=== PATIENT | female | born 1985 | race Two or more races ===

== ENCOUNTER 2020-08-02 20:20 | Emergency (ER) | payer SELFPAY ==
[~2020-08-02] VITALS: Ht 165.1 cm; Wt 72.7 kg
[2020-08-02 21:00] VITALS: BP 115/60
[2020-08-02] MEDS ORDERED: IBUP-1007 PO (21:14)
[2020-08-02] MEDS ORDERED: AMOX500C PO (21:14)
--- NOTE | 2020-08-02 21:14 | PHYS DOC ---
General Adult EDM: Chief Complaint: EARACHE/EAR PAIN HPI: HPI: Patient is a 34 year old female who presents with 2 days of intermittent diarrhea, right ear pain with muffled hearing, body aches, chills. Patient states she feels off balance. She states she is not been taking any medication for her symptoms. She has not gotten any Covid shots. Patient rates her pain at 8 out of 10. Denies any past medical history or surgeries. She denies chest pain, cough, shortness of breath, syncope, headache, abdominal pain, nausea, vomiting. Review of Systems: Review of Systems: Constitutional: + fever or chills. [] Eyes: Denies change in visual acuity. [] HENT: Denies nasal congestion or sore throat. + Right ear pain [] Respiratory: Denies cough or shortness of breath. [] Cardiovascular: Denies chest pain or edema. [] GI: Denies abdominal pain, nausea, vomiting, bloody stools or +diarrhea. [] : Denies dysuria. [] Musculoskeletal: Denies back pain or joint pain. [] Integument: Denies rash. [] Neurologic: Denies headache, focal weakness or sensory changes. + Dizziness [] Endocrine: Denies polyuria or polydipsia. [] Lymphatic: Denies swollen glands. [] Psychiatric: Denies depression or anxiety. [] Heart Score: C/O Chest Pain: No Risk Factors: Risk Factors: DM, Current or recent (<one month) smoker, HTN, HLP, family history of CAD, obesity. Risk Scores: Score 0 - 3: 2.5% MACE over next 6 weeks - Discharge Home Score 4 - 6: 20.3% MACE over next 6 weeks - Admit for Clinical Observation Score 7 - 10: 72.7% MACE over next 6 weeks - Early Invasive Strategies Physical Exam: PE: Constitutional: Well developed, well nourished, no acute distress, non-toxic appearance. [] HENT: Normocephalic, atraumatic, bilateral external ears normal, oropharynx moist, no oral exudates, nose normal. Right ear canal swollen with tympanic not intact. There are some discharge in the ear canal. [] Eyes: PERRLA, EOMI, conjunctiva normal, no discharge. [] Neck: Normal range of motion, no tenderness, supple, no stridor. [] Cardiovascular:Heart rate regular rhythm, no murmur [] Lungs & Thorax: Bilateral breath sounds clear to auscultation [] Abdomen: Bowel sounds normal, soft, no tenderness, no masses, no pulsatile masses. [] Skin: Warm, dry, no erythema, no rash. [] Back: No tenderness, no CVA tenderness. [] Extremities: No tenderness, no cyanosis, no clubbing, ROM intact, no edema. [] Neurologic: Alert and oriented X 3, normal motor function, normal sensory function, no focal deficits noted. [] Psychologic: Affect normal, judgement normal, mood normal. [] Current Patient Data: Vital Signs: Vital Signs Date Time Temp Pulse Resp B/P (MAP) Pulse Ox O2 Delivery O2 Flow Rate FiO2 08/02/20 20:23 98.4 69 20 115/60 (78) 98 Room Air 98.4 EKG: EKG: [] Radiology/Procedures: Radiology/Procedures: [] Course & Med Decision Making: Course & Med Decision Making Pertinent Labs and Imaging studies reviewed. (See chart for details) COVID-19 CRITERIA: The patient was evaluated during the global COVID-19 pandemic, and that diagnosis was suspected/considered upon their initial presentation. Their evaluation, treatment and testing was consistent with current guidelines for patients who present with complaints or symptoms that may be related to COVID-19. See HPI. Alert and oriented x4. Ambulatory with steady gait. Speaks in full clear sentences. Right ear canal slightly swollen and tympanic is not intact. There is no discharge in the ear. Lungs are clear to auscultation all lobes. Vital signs are within normal limits. She is [place]-speaking but family member speaks Estonian and is able to translate. Patient states she is tolerating p.o. [] Dragon Disclaimer: DragThat{img} Disclaimer: This electronic medical record was generated, in whole or in part, using a voice recognition dictation system. COVID-19 Patient Risks: Age 65 or older: No Sign of co-morbidity: No Exp to person + for COVID: No Exp to PUI: No Travel from affected area: No Lower respiratory symptoms: No Fever: Yes Other: Yes (diarrhea, bodyaches) PPE Use: Full PPE with N95 mask or PAPR: Yes Departure Departure Impression: Primary Impression: Otitis media Qualified Codes: H66.011 - Acute suppurative otitis media with spontaneous rupture of ear drum, right ear Additional Impressions: Person under investigation for COVID-19 Body aches Diarrhea Qualified Codes: R19.7 - Diarrhea, unspecified Disposition: HOME / SELF CARE / HOMELESS Condition: STABLE Patient Instructions: Diarrhea, Diet for Diarrhea, Adult, Fever, Adult, Otitis Media, Adult Additional Instructions: Follow-up with a primary care provider. Rest. Drink plenty of fluid. Slowly advance your diet. Take medication as prescribed and with food. Scripts Ibuprofen (IBUPROFEN) 600 Mg Tablet 600 MG PO PRN Q6HRS PRN for INFLAMMATION, #30 TAB Prov: ADELIA DUARTE APRN 08/02/20 Amoxicillin (AMOXICILLIN) 500 Mg Capsule 1 CAP PO BID for 10 Days, #20 CAP Prov: ADELIA DUARTE SECRETARY B[employer] KEEPER 08/02/20 ADELIA DUARTE APRN Aug 02, 2020 21:14
[2020-08-02] MEDS ORDERED: IBUPROFEN 200 MG TABLET. PO ONE (21:30)
--- NOTE | 2020-08-04 15:16 | NUR ---
IP: Informed pt of negative COVID test. Pt and spouse verbalized understanding.
== END 2020-08-02 21:34 | disposition home or self-care (01) ==
LOC: ER 20:20
DX: H66.011 Acute suppurative otitis media with spontaneous rupture of ear drum, right ear (principal); R19.7 Diarrhea, unspecified; Z20.822 Contact with and (suspected) exposure to COVID-19; M79.10 Myalgia, unspecified site
CPT/HCPCS: 99283; U0003